=== PATIENT | male | born 1985 | race Caucasian/White ===

== ENCOUNTER 2020-05-08 07:13 | Outpatient (REF) | payer OTHER, SELFPAY | END 2020-05-08 07:14 | disposition home or self-care (01) | LOC: HO.LAB 07:13 | PROVIDERS: Visit Provider Internal Medicine | DX: Z20.828 Contact with and (suspected) exposure to other viral communicable diseases (principal) | CPT/HCPCS: C9803; U0003 ==

== ENCOUNTER → 2021-07-16 12:56 | Outpatient (BNVA) | payer SELFPAY | PROVIDERS: Visit Provider Internal Medicine | DX: Z02.79 Encounter for issue of other medical certificate (principal) ==

== ENCOUNTER → 2021-09-17 13:12 | Outpatient (BNVA) | payer OTHER, SELFPAY | PROVIDERS: Visit Provider Physician Assistant Medical | DX: S67.21XA Crushing injury of right hand, initial encounter (principal); W23.0XXA Caught, crushed, jammed, or pinched between moving objects, initial encounter | CPT/HCPCS: 73110; 73130; 99203 ==

== ENCOUNTER → 2021-09-24 11:24 | Outpatient (BNVA) | payer OTHER, SELFPAY | PROVIDERS: Visit Provider Physician Assistant Medical | DX: S67.21XA Crushing injury of right hand, initial encounter (principal); S67.01XA Crushing injury of right thumb, initial encounter; W23.0XXA Caught, crushed, jammed, or pinched between moving objects, initial encounter | CPT/HCPCS: 73200; 99213 ==

== ENCOUNTER → 2021-09-30 16:10 | Outpatient (BNVA) | payer OTHER, SELFPAY | PROVIDERS: Visit Provider Internal Medicine | DX: Z02.1 Encounter for pre-employment examination (principal) ==

== ENCOUNTER → 2021-10-07 13:51 | Outpatient (BNVA) | payer OTHER, SELFPAY | PROVIDERS: Visit Provider Physician Assistant Medical | DX: S67.41XD Crushing injury of right wrist and hand, subsequent encounter (principal); W22.8XXD Striking against or struck by other objects, subsequent encounter | CPT/HCPCS: 99213 ==

== ENCOUNTER 2021-10-21 15:40 | Outpatient (REF) | payer OTHER, SELFPAY ==
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
== END 2021-10-21 15:41 | disposition home or self-care (01) ==
LOC: HO.MRI 15:40
PROVIDERS: Visit Provider Internal Medicine
DX: R60.0 Localized edema (principal); M79.641 Pain in right hand
CPT/HCPCS: 73218

== ENCOUNTER 2022-09-12 20:15 | Emergency (ER) | payer OTHER, SELFPAY ==
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
[2022-09-12 20:31] VITALS: BP 124/79; PULSE 82; RESP 20; TEMP 36.9; O2SAT 98; BMI 26.6
[2022-09-12 21:33] VITALS: BP 129/74; PULSE 84; RESP 17; TEMP 36.7; O2SAT 99
[2022-09-12 21:36] LABS: MANUAL DIFF FLAG NO
[2022-09-12 21:41] LABS: Carbon Monoxide POC 2.8 %
[2022-09-12 21:42] LABS: Carbon Monoxide Refer to POC result
[2022-09-12 21:45] LABS: Basophils Absolute Auto 0.1 X10*3/uL (0.0-0.2); Basophils Percent Auto 0.5 % (0-2); Eosinophils Absolute Auto 0.1 X10*3/uL (0.0-0.4); Eosinophils Percent Auto 0.8 % (0-4); Hematocrit 40.7 % (42.0-52.0); Hemoglobin 14.4 g/dl (14.0-18.0); Imm Gran Abs Auto 0.04 X10*3/uL (0.00-0.03); Imm Gran Pct Auto 0.3 % (0.0-0.4); Lymphocytes Absolute Auto 2.6 X10*3/uL (1.2-4.9); Lymphocytes Percent Auto 22.9 % (20-40); Mean Corpuscular HGB Conc 35.4 g/dl (31.0-36.0); Mean Corpuscular Hemoglobin 32.6 pg (27.0-33.0); Mean Corpuscular Volume 92.1 fL (80.0-98.0); Monocytes Absolute Auto 0.7 X10*3/uL (0.1-1.2); Monocytes Percent Auto 6.4 % (2-11); Neutrophils Percent Auto 69.1 % (45-73); Platelet Count 255 X10*3/uL (160-400); Red Blood Count 4.42 X10*6/uL (4.60-5.80); Red Cell Distribution Width 12.7 % (11.0-16.0); White Blood Count 11.5 X10*3/uL (4.8-10.8)
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
[2022-09-12 21:55] LABS: Alanine Aminotransferase 24 U/L (0-40); Albumin Level 4.2 g/dL (3.5-5.0); Alkaline Phosphatase 50 U/L (39-117); Anion Gap 12 (12-20); Aspartate Amino Transferase 20 U/L (5-37); Bilirubin Total 0.6 mg/dL (0.0-1.0); Blood Urea Nitrogen 19 mg/dL (9-16); Calcium 8.7 mg/dL (8.4-10.2); Carbon Dioxide 23 mmol/L (22-29); Chloride 109 mmol/L (96-108); Creatinine Clr Calc Pharmacy 73.3; Estimated Glomerular Filt Rate > 60; Glucose Random 102 mg/dL (60-115); Potassium 3.8 mmol/L (3.3-5.1); Sodium 140 mmol/L (135-145); Total Protein 7.1 g/dL (6.5-8.0)
--- NOTE | 2022-09-12 22:01 | PC.NURSE ---
Non-rebreather mask applied at 15 LPM per MD order d/t carboxyhemoglobin level of 2.8. VSS, O2 Sat 100% on non-rebreather mask.
--- NOTE | 2022-09-12 22:21 | PC.NURSE ---
Patient's vital signs remain stable, O2 Sat 100 on non-rebreather mask, RR 18, no s/s of respiratory distress noted. Call ley within patient's reach.
[2022-09-12 23:43] VITALS: BP 124/70; PULSE 75; RESP 16; TEMP 36.7; O2SAT 98
== END 2022-09-12 23:45 | disposition home or self-care (01) ==
PROVIDERS: Emergency Provider Emergency Medicine
DX: J70.5 Respiratory conditions due to smoke inhalation (principal); R06.02 Shortness of breath; Z79.899 Other long term (current) drug therapy
CPT/HCPCS: 36415; 71045; 80053; 82375; 84484; 85025; 93005; 99283; 99284

== ENCOUNTER → 2022-09-15 14:10 | Outpatient (BNVA) | payer OTHER, SELFPAY | PROVIDERS: Visit Provider Physician Assistant Medical | DX: T59.811A Toxic effect of smoke, accidental (unintentional), initial encounter (principal) | CPT/HCPCS: 99202 ==